=== PATIENT | male | born 1940 ===

== ENCOUNTER 2016-11-18 19:16 | Emergency (ER) | payer MEDICARE, MEDICAID ==
[2016-11-18 19:17] VITALS: BMI 27.3
[2016-11-18 19:56] VITALS: O2SAT 99
--- NOTE | 2016-11-18 20:24 | C.PDOC ---
History Of Present Illness 75 year old male who presents to the ER with a complaint of not being able to pass urine. Folly catheter placed with 750cc of urine output. Patient has a Hx of prostatic enlargement; denies abdominal pain, hematuria, nausea, vomiting, or diarrhea. Chief Complaint (Nursing): Male Genitourinary History Per: Patient History/Exam Limitations: no limitations Onset/Duration Of Symptoms: Hrs Current Symptoms Are (Timing): Still Present Quality Of Discomfort: Unable To Describe Associated Symptoms: denies: Fever, Chills, Nausea, Vomiting, Diarrhea Alleviating Factors: None Recent travel outside of the [place]: No Past Medical History Reviewed: Historical Data, Nursing Documentation, Vital Signs Vital Signs: Last Vital Signs Temp 97.5 F L 11/18/16 19:41 Pulse 110 H 11/18/16 19:41 Resp 22 11/18/16 19:41 BP 151/85 H 11/18/16 19:41 Pulse Ox 99 11/18/16 22:25 - Medical History PMH: Anxiety, Atrial Fibrillation, CAD, Depression, HTN, Hypercholesterolemia Surgical History: Appendectomy, Coronary Stent (x2) - [facility] Procedures CLOSURE SKIN & SUBCUTANEOUS NEC (10/13/14) Family History: States: Unknown Family Hx - Social History Hx Alcohol Use: No Hx Substance Use: No Review Of Systems Constitutional: Negative for: Fever, Chills Gastrointestinal: Negative for: Nausea, Vomiting, Abdominal Pain Genitourinary: Positive for: Other (Cannot pass urine). Negative for: Dysuria, Hematuria Neurological: Negative for: Weakness, Numbness Physical Exam - Physical Exam Appears: Non-toxic, No Acute Distress Skin: Normal Color, Warm, Dry Head: Atraumatic, Normacephalic Oral Mucosa: Moist Chest: Symmetrical, No Tenderness Cardiovascular: Rhythm Regular, No Murmur Respiratory: Normal Breath Sounds, No Rales, No Rhonchi, No Wheezing Gastrointestinal/Abdominal: Soft, No Tenderness, Distention (Initally before folly catheter), No Guarding, No Rebound Neurological/Psych: Oriented x3, Normal Speech, Normal Cognition ED Course And Treatment O2 Sat by Pulse Oximetry: 99 (Room air) Pulse Ox Interpretation: Normal Progress Note: Urinalysis ordered. Disposition Doctor Will See Patient In The: Hospital Counseled Patient/Family Regarding: Diagnosis - Disposition Referrals: [facility] at [facility] [Outside] Ana Marquez MD [Staff Provider] - Disposition: HOME/ ROUTINE Disposition Time: 22:25 Condition: STABLE Instructions: Veliz Catheter Placement and Care (ED), Urinary Leg Bag (GEN), Urinary Retention in Men (ED) Forms: [facility] (Canadian) - POA Present On Arrival: None - Clinical Impression Clinical Impression: Urinary retention - Scribe Statement The provider has reviewed the documentation as recorded by the Scribe Kuldip Griffin All medical record entries made by the Scribe were at my direction and personally dictated by me. I have reviewed the chart and agree that the record accurately reflects my personal performance of the history, physical exam, medical decision making, and the department course for this patient. I have also personally directed, reviewed, and agree with the discharge instructions and disposition.
[2016-11-18 21:18] LABS: RBC URINE 9 /hpf (0-3); URINE BACTERIA OCC (<OCC); URINE BILIRUBIN NEGATIVE (NEGATIVE); URINE BLOOD 2+ (NEGATIVE); URINE COLOR Straw (YELLOW); URINE GLUCOSE (UA) NORMAL (Normal); URINE KETONE NEGATIVE (NEGATIVE); URINE LEUKOCYTE ESTERASE NEG Leu/uL (Negative); URINE PROTEIN NEGATIVE (NEGATIVE); URINE UROBILINOGEN NORMAL mg/dL (0.2-1.0); WBC URINE 2 /hpf (0-5)
[2016-11-18 22:49] VITALS: BP 124/75; PULSE 81; RESP 18; TEMP 98.3
== END 2016-11-18 23:17 | disposition home or self-care (01) ==
LOC: C.ER 19:16
DX: R33.9 Retention of urine, unspecified (principal)

== ENCOUNTER 2016-12-05 10:50 | Emergency (ER) | payer MEDICARE, MEDICAID ==
[2016-12-05 10:50] VITALS: BMI 27.3
[2016-12-05 11:08] VITALS: RESP 18; O2SAT 99
--- NOTE | 2016-12-05 11:47 | C.PDOC ---
History Of Present Illness 76 year old presents to the ED with complaints of hematuria and suprapubic pain for two days. Patient notes pain is minimal and was seen by urologist Dr. Marquez 6 days ago. Patient had a rodriguez placed due to inability to urinate. He denies fever, nausea, vomiting, or other complaints at this time. Time Seen by Provider: 12/05/16 11:28 Chief Complaint (Nursing): Male Genitourinary History Per: Patient History/Exam Limitations: no limitations Onset/Duration Of Symptoms: Days (2 days ) Current Symptoms Are (Timing): Still Present Quality Of Discomfort: "Pain" Recent travel outside of the [place]: No Additional History Per: Family, Prior Records Past Medical History Reviewed: Historical Data, Nursing Documentation, Vital Signs Vital Signs: Last Vital Signs Temp 97.5 F L 12/05/16 13:25 Pulse 70 12/05/16 13:25 Resp 18 12/05/16 13:25 BP 104/66 12/05/16 13:25 Pulse Ox 99 12/05/16 17:35 - Medical History PMH: Anxiety, Atrial Fibrillation, CAD, Depression, HTN, Hypercholesterolemia Surgical History: Appendectomy, Coronary Stent (x2) - [facility] Procedures CLOSURE SKIN & SUBCUTANEOUS NEC (10/13/14) Family History: States: Other Other Family History: Non-contributory. - Social History Hx Alcohol Use: No Hx Substance Use: No Review Of Systems Constitutional: Negative for: Fever, Chills Cardiovascular: Negative for: Chest Pain Respiratory: Negative for: Shortness of Breath Gastrointestinal: Positive for: Abdominal Pain. Negative for: Nausea, Vomiting , Diarrhea Genitourinary: Positive for: Hematuria. Negative for: Incontinence Neurological: Negative for: Weakness, Numbness Physical Exam - Physical Exam Appears: Non-toxic, No Acute Distress Skin: Warm, Dry Head: Atraumatic Eye(s): bilateral: Normal Inspection Oral Mucosa: Moist Neck: Supple Chest: Symmetrical, No Deformity Cardiovascular: Rhythm Regular Respiratory: Normal Breath Sounds, No Rales, No Rhonchi, No Wheezing Gastrointestinal/Abdominal: Soft, No Tenderness, No Distention, No Guarding, No Rebound Male Genital: Other (Rodriguez catheter in place draining clear urine ) Extremity: Normal ROM, No Tenderness Neurological/Psych: Oriented x3, Normal Speech, Normal Cognition ED Course And Treatment - Laboratory Results Result Diagrams: 12/05/16 12:00 12/05/16 12:00 O2 Sat by Pulse Oximetry: 99 (room air ) Progress Note: UA and Labs were ordered. Medical Decision Making Medical Decision Making: zully Marquez rec adrianaquin and f/u in office Disposition - Disposition Referrals: Ana Marquez MD [Staff Provider] - Disposition: HOME/ ROUTINE Disposition Time: 13:31 Condition: STABLE Additional Instructions: Please call Dr Marquez's office tomorrow to arrange follow up. Return to the ER for any worsening symptoms or for any other concerns. Prescriptions: levoFLOXacin [Levaquin] 500 mg PO DAILY #7 tab Instructions: Urinary Tract Infection in Men (ED) Forms: Gen Discharge Inst Tongan, [facility] (Colombian) Print Language: YORUBA - Clinical Impression Clinical Impression: UTI (urinary tract infection) - Scribe Statement The provider has reviewed the documentation as recorded by the Scribe Nicky Li All medical record entries made by the Scribe were at my direction and personally dictated by me. I have reviewed the chart and agree that the record accurately reflects my personal performance of the history, physical exam, medical decision making, and the department course for this patient. I have also personally directed, reviewed, and agree with the discharge instructions and disposition.
[2016-12-05 12:05] LABS: BASO # 0.1 K/uL (0.0-0.2); BASO % 1.2 % (0.0-2.0); EOS # 0.1 K/uL (0.0-0.7); EOS % 1.8 % (0.0-4.0); HEMATOCRIT 40.7 % (35.0-51.0); LYMPH # 1.5 K/uL (1.0-4.3); LYMPH % 30.6 % (20.0-40.0); MEAN CELL VOLUME 78.8 fL (80.0-94.0); MEAN CORPUSCULAR HEMOGLOBIN 25.6 pg (27.0-31.0); MEAN CORPUSCULAR HGB CONC 32.5 g/dL (33.0-37.0); MONO # 0.7 K/uL (0.0-0.8); MONO % 13.6 % (0.0-10.0); NRBC % 0.1 % (0.0-2.0); RED CELL DISTRIBUTION WIDTH 14.2 % (11.5-14.5)
[2016-12-05 12:11] LABS: RBC URINE 23 /hpf (0-3); URINE BACTERIA MOD (<OCC); URINE BILIRUBIN NEGATIVE (NEGATIVE); URINE BLOOD 3+ (NEGATIVE); URINE COLOR Yellow (YELLOW); URINE GLUCOSE (UA) NORMAL (Normal); URINE KETONE NEGATIVE (NEGATIVE); URINE LEUKOCYTE ESTERASE 3+ Leu/uL (Negative); URINE PROTEIN NEGATIVE (NEGATIVE); URINE UROBILINOGEN NORMAL mg/dL (0.2-1.0); WBC URINE 30 /hpf (0-5)
[2016-12-05 12:13] LABS: CHLORIDE 102 mmol/L (98-107); POTASSIUM 4.5 mmol/L (3.6-5.2); SODIUM 145 mmol/L (132-148)
[2016-12-05 12:15] LABS: GFR AFRICAN-AMERICAN > 60
[2016-12-05 12:16] LABS: ALB/GLOB RATIO 1.1 (1.0-2.1); ALKALINE PHOSPHATASE 61 U/L (38-126); ALT/SGPT 22 U/L (21-72); AST/SGOT 17 U/L (17-59); BILIRUBIN,TOTAL 0.8 mg/dL (0.2-1.3); BLOOD UREA NITROGEN 15 mg/dL (9-20); CARBON DIOXIDE 31 mmol/L (22-30); GLUCOSE,RANDOM 102 mg/dL (75-110); TOTAL PROTEIN 8.4 g/dL (6.3-8.3)
[2016-12-05 13:26] VITALS: BP 104/66; PULSE 70; TEMP 97.5
== END 2016-12-05 13:32 | disposition home or self-care (01) ==
LOC: C.ER 10:50
DX: N39.0 Urinary tract infection, site not specified (principal)

== ENCOUNTER 2016-12-09 11:26 | Inpatient (IN) | payer MEDICARE, MEDICAID ==
[2016-12-08 07:17] VITALS: BMI 25.8
[2016-12-09] MEDS ORDERED: Lactated Ringer's 1,000 ML IV ONE (13:18)
[2016-12-09] MEDS ORDERED: Lidocaine Hydrochloride 5 ML INJ ONE (13:20)
[2016-12-09] MEDS ORDERED: Propofol 10 mg/ml Inj (20 ML) ONE (13:20)
[2016-12-09] MEDS ORDERED: Ciprofloxacin 400mg/200ml D5W 400 MG/200 ML BAG IVPB ONE (13:21)
[2016-12-09] MEDS ORDERED: Lidocaine 2% Jelly (Uro-Jet) ONE (13:21)
[2016-12-09] MEDS ORDERED: ePHEDrine 50 mg/ml Inj ONE (13:35)
[2016-12-09] MEDS ORDERED: Neostigmine Methylsulfate 3mg/3ml Syringe IV ONE (14:41)
--- NOTE | 2016-12-09 15:05 | PCM.SURG1 ---
Surgeon's Initial Post Op Note - Surgeon's Notes Surgeon: akbar Buckle And Button Maker: none Type of Anesthesia: General IV Anesthesia Administered By: Pre-Operative Diagnosis: bph.acute urinary retention. Operative Findings: bph Post-Operative Diagnosis: bph.moderate trabeculation.no tumors or stones.enlarged prostate gland. Operation Performed: tur prostate gland. Specimen/Specimens Removed: prostate tissue. Estimated Blood Loss: EBL {In ML}: 15 Blood Products Given: N/A Drains Used: No Drains Post-Op Condition: Good Date of Surgery/Procedure: 12/09/16 Time of Surgery/Procedure: 15:07
[2016-12-09] MEDS ORDERED: HYDROmorphone 0.5 mg/0.5 ml ISec ONE (15:14)
[2016-12-09] MEDS: HYDROmorphone 0.5 mg/0.5 ml ISec IVP PRN ×2 (15:15→15:45)
[2016-12-09] MEDS: Dextrose 5%/0.45% NS 1,000 ML IV SCH (16:50)
[2016-12-09] MEDS ORDERED: Dextrose 5%/0.45% NS 1,000 ML IV ONE (17:10)
[2016-12-09] MEDS: Oxycodone/Acetaminophen 5/325 mg Tab PO PRN (18:52)
[2016-12-10] MEDS: Oxycodone/Acetaminophen 5/325 mg Tab PO PRN ×2 (00:13→15:00)
[2016-12-10] MEDS: Ciprofloxacin 400mg/200ml D5W 400 MG/200 ML BAG IVPB SCH ×3 (05:18→14:43)
[2016-12-10 07:04] LABS: HEMATOCRIT 32.8 % (35.0-51.0); MEAN CELL VOLUME 78.9 fL (80.0-94.0); MEAN CORPUSCULAR HEMOGLOBIN 26.3 pg (27.0-31.0); MEAN CORPUSCULAR HGB CONC 33.3 g/dL (33.0-37.0); MEAN PLATELET VOLUME 10.1 fL (7.2-11.7); RED CELL DISTRIBUTION WIDTH 14.2 % (11.5-14.5); WHITE BLOOD COUNT 9.9 K/uL (4.8-10.8)
[2016-12-10 07:38] LABS: BLOOD UREA NITROGEN 16 mg/dL (9-20); CALCIUM 8.9 mg/dl (8.6-10.4); CARBON DIOXIDE 26 mmol/L (22-30); CHLORIDE 98 mmol/L (98-107); GFR AFRICAN-AMERICAN > 60; GLUCOSE,RANDOM 196 mg/dL (75-110); POTASSIUM 4.4 mmol/L (3.6-5.2); SODIUM 138 mmol/L (132-148)
[2016-12-10] MEDS: Dextrose 5%/0.45% NS 1,000 ML IV SCH (12:00)
[2016-12-10] MEDS ORDERED: Pneumococcal 23-Valent Vaccine IM ONE (14:00)
[2016-12-11] MEDS: Ciprofloxacin 400mg/200ml D5W 400 MG/200 ML BAG IVPB SCH ×2 (01:02→13:25)
[2016-12-11] MEDS: Oxycodone/Acetaminophen 5/325 mg Tab PO PRN ×3 (07:27→21:17)
[2016-12-11 16:49] LABS: HEMATOCRIT 27.7 % (35.0-51.0); MEAN CELL VOLUME 78.7 fL (80.0-94.0); MEAN CORPUSCULAR HEMOGLOBIN 26.3 pg (27.0-31.0); MEAN CORPUSCULAR HGB CONC 33.4 g/dL (33.0-37.0); MEAN PLATELET VOLUME 10.1 fL (7.2-11.7); RED CELL DISTRIBUTION WIDTH 14.5 % (11.5-14.5); WHITE BLOOD COUNT 8.5 K/uL (4.8-10.8)
[2016-12-11] MEDS: Dextrose 5%/0.45% NS 1,000 ML IV SCH (18:34)
[2016-12-12] MEDS: Ciprofloxacin 400mg/200ml D5W 400 MG/200 ML BAG IVPB SCH ×2 (01:04→14:38)
[2016-12-12] MEDS: Oxycodone/Acetaminophen 5/325 mg Tab PO PRN ×2 (04:12→14:37)
[2016-12-12] MEDS: Docusate-Senna 50 mg-8.6 mg Tab PO SCH (14:37)
[2016-12-12] MEDS: Dextrose 5%/0.45% NS 1,000 ML IV SCH (14:45)
[2016-12-12 16:08] VITALS: RESP 20
[2016-12-13] MEDS: Ciprofloxacin 400mg/200ml D5W 400 MG/200 ML BAG IVPB SCH ×2 (02:42→16:02)
[2016-12-13] MEDS: Docusate-Senna 50 mg-8.6 mg Tab PO SCH (10:29)
[2016-12-13 16:07] VITALS: BP 129/85; PULSE 91; TEMP 97.6; O2SAT 100
--- NOTE | 2016-12-24 03:56 | OP ---
PROCEDURE DATE: 12/09/2016 PREOPERATIVE DIAGNOSES: Acute urinary retention, benign prostatic hypertrophy. POSTOPERATIVE DIAGNOSES: Acute urinary retention, benign prostatic hypertrophy. PROCEDURE: Transurethral resection of the prostate gland. SURGEON: Asad Capone MD GROSS FINDING: Good bladder capacity. No tumors or stones were observed during emptying or filling of the bladder. Moderate trabeculated bladder. Urethral orifices normally placed and in configuration. Enlarged lateral lobes of the prostate gland meeting at the midline, a small median lobe, a slightly elongated prostatic urethra. Membranous and pendulous urethra normal. TECHNIQUE: This patient was placed in lithotomy position. The external genitalia were prepped and draped in the usual sterile fashion. The urethra was dilated to #28 Azael sounds and #26 resectoscope was introduced in the bladder. The resection was started at the bladder neck and on the right lateral lobe, was carried down distally close to the verumontanum without injuring this structure. The left lateral lobe was resected in the same manner. Bleeders were thoroughly fulgurated.. At the end of the procedure, all the prostate tissue was removed for pathology evaluation. Then, a #22 three-way 30 mL Veliz was left indwelling to be connected to a continuous bladder irrigation with normal saline. The patient withstood the procedure well and returned to recovery room in satisfactory condition. Asad Capone MD
--- NOTE | 2016-12-24 07:47 | DS ---
HISTORY OF PRESENT ILLNESS: This patient was admitted for transurethral resection of the prostate gland because of enlargement of the prostate gland and acute urinary retention. The CBC was within normal limit. There is slight decrease in the platelet count. PT and PTT within normal limits. PSA 4.8 ng/mL. Echocardiogram, LVEF 50%. Mild aortic regurgitation and moderate mitral regurgitation. The chest x-ray showed COPD with no acute infiltrate. This patient underwent transurethral resection of the prostate gland on 12/09/2016, and did well with small amount of bleeding postop. The pathology report was benign prostatic hyperplasia. The patient is to be discharged with a Veliz catheter, leg bag, antibiotic, and to go to for office followup in 5 days. Asad Capone MD
== END 2016-12-13 15:35 | disposition home or self-care (01) | DRG 714 ==
LOC: C.9S 11:26 → C.6T 17:42
PROVIDERS: ADMIT Urology; ATTEND Urology
PROC: 0VT08ZZ Resection of Prostate, Via Natural or Artificial Opening Endoscopic (ICD-10-PCS; principal; 2016-12-09 13:00)
DX: N40.1 Benign prostatic hyperplasia with lower urinary tract symptoms (principal); J44.9 Chronic obstructive pulmonary disease, unspecified; I34.0 Nonrheumatic mitral (valve) insufficiency; R33.8 Other retention of urine; I35.1 Nonrheumatic aortic (valve) insufficiency

== ENCOUNTER 2017-01-05 03:21 | Inpatient (IN) | payer MEDICARE, MEDICAID ==
[2017-01-05 03:24] VITALS: BMI 25.8
--- NOTE | 2017-01-05 04:06 | C.PDOC ---
History Of Present Illness patient presents in acute urinary retention and hematuria. Sharp stabbing pain. Was able to void about 15 cc of bloody urine and some clots. Time Seen by Provider: 01/05/17 04:05 Chief Complaint (Nursing): Abdominal Pain History Per: Patient History/Exam Limitations: no limitations Onset/Duration Of Symptoms: Hrs Current Symptoms Are (Timing): Worse Context: Other Severity: Moderate Pain Scale Rating Of: 5 Location Of Pain/Discomfort: Suprapubic Radiation Of Pain To:: None Quality Of Discomfort: Sharp, Cramping, Stabbing Associated Symptoms: Urinary Symptoms (hematuria). denies: Fever, Chills, Nausea Exacerbating Factors: None Alleviating Factors: None Last Bowel Movement: Yesterday Recent travel outside of the [place]: No Additional History Per: Family Past Medical History Reviewed: Historical Data, Nursing Documentation, Vital Signs Vital Signs: Last Vital Signs Temp 97.6 F 01/05/17 03:35 Pulse 97 H 01/05/17 03:35 Resp 18 01/05/17 03:35 BP 113/60 01/05/17 03:35 Pulse Ox 97 01/05/17 04:30 - Medical History PMH: Anxiety, Atrial Fibrillation, CAD, Cardia Arrhythmia (a fib), Depression, Gall Bladder Disease, HTN, Hypercholesterolemia Denies: Chronic Kidney Disease Surgical History: Appendectomy, Cholecystectomy, Coronary Stent (x2), Endoscopy , Tonsillectomy - [facility] Procedures CLOSURE SKIN & SUBCUTANEOUS NEC (10/13/14) RESECTION OF PROSTATE, ENDO (12/09/16) Family History: States: Unknown Family Hx - Social History Hx Alcohol Use: No Hx Substance Use: No - Immunization History Hx Tetanus Toxoid Vaccination: No Hx Influenza Vaccination: No Hx Pneumococcal Vaccination: No Review Of Systems Constitutional: Negative for: Fever, Chills Eyes: Negative for: Redness Cardiovascular: Negative for: Chest Pain Respiratory: Negative for: Shortness of Breath Gastrointestinal: Positive for: Abdominal Pain. Negative for: Nausea, Vomiting Genitourinary: Positive for: Hematuria Musculoskeletal: Negative for: Back Pain Skin: Negative for: Rash Neurological: Negative for: Weakness Psych: Negative for: Anxiety Physical Exam - Physical Exam Appears: In Acute Distress Skin: Warm, Dry Head: Normacephalic Eye(s): bilateral: Normal Inspection Chest: Symmetrical Cardiovascular: Rhythm Regular Respiratory: No Rales, No Rhonchi, No Wheezing Gastrointestinal/Abdominal: Soft, Tenderness (suprapubic), Distention Back: No CVA Tenderness Male Genital: No Testicular Tenderness, Circumcised Extremity: Normal ROM Extremity: Bilateral: Atraumatic Pulses: Left Dorsalis Pedis: Normal, Right Dorsalis Pedis: Normal Neurological/Psych: Oriented x3, Normal Speech, Normal Cognition Gait: Steady ED Course And Treatment - Laboratory Results Result Diagrams: 01/05/17 04:28 01/05/17 04:28 O2 Sat by Pulse Oximetry: 97 Pulse Ox Interpretation: Normal Progress Note: i've placed a [address]z without any difficulty. Large amount of bloody urine and clots draining. Pt with instant relief. Disposition Discussed With Dr.: Shiela Jackson Comment: accepted the pt on his service and took over thecare at 5:30 AM Doctor Will See Patient In The: Hospital Counseled Patient/Family Regarding: Studies Performed, Diagnosis - Disposition Disposition: HOSPITALIZED Disposition Time: 04:05 Condition: FAIR Forms: [facility] (Cymro) - POA Present On Arrival: Poor Glycemic Control - Clinical Impression Clinical Impression: Abdominal pain, Urinary retention, Hematuria Decision To Admit - Pt Status Changed To: Hospital Disposition Of: Inpatient - Admit Certification Admit to Inpatient:: After my assessment, the patient will require hospitalization for at least two midnights. This is because of the severity of symptoms shown, intensity of services needed, and/or the medical risk in this patient being treated as an outpatient. - InPatient: Physician Admission Certification:: After my assessment, the patient will require hospitalization for at least two midnights. This is because of the severity of symptoms shown, intensity of services needed, and/or the medical risk in this patient being treated as an outpatient. - . Bed Request Type: Regular Admitting Physician: Shiela Jackson Patient Diagnosis: Abdominal pain, Urinary retention, Hematuria
[2017-01-05 04:33] LABS: BASO # 0.1 K/uL (0.0-0.2); BASO % 1.3 % (0.0-2.0); EOS # 0.3 K/uL (0.0-0.7); EOS % 5.7 % (0.0-4.0); HEMATOCRIT 30.5 % (35.0-51.0); LYMPH # 0.8 K/uL (1.0-4.3); MEAN CELL VOLUME 80.7 fL (80.0-94.0); MEAN CORPUSCULAR HEMOGLOBIN 25.9 pg (27.0-31.0); MEAN CORPUSCULAR HGB CONC 32.1 g/dL (33.0-37.0); MONO # 0.7 K/uL (0.0-0.8); MONO % 14.8 % (0.0-10.0); NRBC % 0.1 % (0.0-2.0); RED CELL DISTRIBUTION WIDTH 15.4 % (11.5-14.5); WHITE BLOOD COUNT 4.4 K/uL (4.8-10.8)
[2017-01-05 04:39] LABS: INR 1.1
[2017-01-05 04:45] LABS: CHLORIDE 104 mmol/L (98-107); POTASSIUM 4.2 mmol/L (3.6-5.2); SODIUM 138 mmol/L (132-148)
[2017-01-05 04:48] LABS: CARBON DIOXIDE 24 mmol/L (22-30); GFR AFRICAN-AMERICAN > 60
[2017-01-05 04:49] LABS: BLOOD UREA NITROGEN 16 mg/dL (9-20); CALCIUM 8.8 mg/dl (8.6-10.4); GLUCOSE,RANDOM 122 mg/dL (75-110)
[2017-01-05] MEDS ORDERED: Sodium Chloride 0.9% 1,000 ML IV ONE (06:25)
[2017-01-05] MEDS: Sodium Chloride 0.9% 1,000 ML IV SCH (09:00)
--- NOTE | 2017-01-05 09:49 | CP.PCM.HP ---
Past Patient History - Past Medical History & Family History Past Medical History?: Yes - Past Social History Smoking Status: Former Smoker - CARDIAC Hx Atrial Fibrillation: Yes Hx Cardia Arrhythmia: Yes (a fib) Hx Hypercholesterolemia: Yes Hx Hypertension: Yes - PULMONARY Hx Respiratory Disorders: No - NEUROLOGICAL Hx Neurological Disorder: No Other/Comment: NEUROPATHY - HEENT Hx HEENT Problems: Yes Hx Cataracts: Yes (right eye) Hx Glaucoma: Yes - RENAL Hx Chronic Kidney Disease: No - ENDOCRINE/METABOLIC Hx Endocrine Disorders: No - HEMATOLOGICAL/ONCOLOGICAL Hx Blood Disorders: No - INTEGUMENTARY Hx Dermatological Problems: No - MUSCULOSKELETAL/RHEUMATOLOGICAL Hx Musculoskeletal Disorders: Yes Hx Falls: No Hx Unsteady Gait: Yes (USES CANE) - GASTROINTESTINAL Hx Gall Bladder Disease: Yes - GENITOURINARY/GYNECOLOGICAL Hx Genitourinary Disorders: Yes Hx Prostate Problems: Yes (rodriguez to sgd) - PSYCHIATRIC Hx Anxiety: Yes Hx Depression: Yes Hx Substance Use: No - SURGICAL HISTORY Hx Appendectomy: Yes Hx Cholecystectomy: Yes Hx Coronary Stent: Yes (x2) Hx Tonsillectomy: Yes - ANESTHESIA Hx Anesthesia: Yes Hx Anesthesia Reactions: No Hx Malignant Hyperthermia: No Meds Allergies/Adverse Reactions: Allergies Allergy/AdvReac Type Severity Reaction Status Date / Time aspirin Allergy RASH Verified 01/05/17 03:42 Penicillins Allergy RASH Verified 01/05/17 03:42 Physical Exam - Constitutional Appears: Well - Head Exam Head Exam: ATRAUMATIC, NORMAL INSPECTION, NORMOCEPHALIC - Eye Exam Eye Exam: EOMI, Normal appearance, PERRL Pupil Exam: NORMAL ACCOMODATION, PERRL - ENT Exam ENT Exam: Mucous Membranes Moist, Normal Exam - Neck Exam Neck exam: Positive for: Normal Inspection - Respiratory Exam Respiratory Exam: Decreased Breath Sounds - Cardiovascular Exam Cardiovascular Exam: REGULAR RHYTHM, +S1, +S2 - GI/Abdominal Exam GI & Abdominal Exam: Diminished Bowel Sounds, Soft - Rectal Exam Rectal Exam: Deferred Results - Vital Signs Recent Vital Signs: Last Vital Signs Temp 97.4 F L 01/05/17 07:40 Pulse 80 01/05/17 07:40 Resp 20 01/05/17 07:40 BP 103/63 01/05/17 07:40 Pulse Ox 97 01/05/17 07:40 - Labs Result Diagrams: 01/05/17 04:28 01/05/17 04:28 Labs: Laboratory Results - last 24 hr 01/05/17 01/05/17 01/05/17 04:28 04:28 04:28 WBC 4.4 L RBC 3.78 L Hgb 9.8 L Hct 30.5 L MCV 80.7 D MCH 25.9 L MCHC 32.1 L RDW 15.4 H Plt Count 139 MPV 9.0 Neut % (Auto) 60.2 Lymph % (Auto) 18.0 L [place] % (Auto) 14.8 H Eos % (Auto) 5.7 H Baso % (Auto) 1.3 Neut # 2.6 Lymph # 0.8 L [place] # 0.7 Eos # 0.3 Baso # 0.1 PT 12.8 H INR 1.1 APTT 35 H Sodium 138 Potassium 4.2 Chloride 104 Carbon Dioxide 24 Anion Gap 14 BUN 16 Creatinine 0.9 Est GFR ( Amer) > 60 Est GFR (Non-Af Amer) > 60 Random Glucose 122 H Calcium 8.8
[2017-01-05] MEDS: Ciprofloxacin 400mg/200ml D5W 400 MG/200 ML BAG IVPB SCH ×2 (11:00→21:36)
[2017-01-06] MEDS: Ciprofloxacin 400mg/200ml D5W 400 MG/200 ML BAG IVPB SCH ×2 (09:49→21:22)
[2017-01-06] MEDS: Sodium Chloride 0.9% 1,000 ML IV SCH (09:51)
[2017-01-06] MEDS ORDERED: Latanoprost 2.5 ml Opht Soln OU SCH (10:00)
[2017-01-06] MEDS ORDERED: CYCLOSPORINE BOTHEYES SCH (10:00)
[2017-01-06 14:07] LABS: BASO # 0.1 K/uL (0.0-0.2); BASO % 1.1 % (0.0-2.0); EOS # 0.2 K/uL (0.0-0.7); EOS % 3.5 % (0.0-4.0); HEMATOCRIT 28.9 % (35.0-51.0); LYMPH # 1.4 K/uL (1.0-4.3); LYMPH % 29.8 % (20.0-40.0); MEAN CORPUSCULAR HGB CONC 33.3 g/dL (33.0-37.0); MEAN PLATELET VOLUME 9.8 fL (7.2-11.7); MONO # 0.8 K/uL (0.0-0.8); MONO % 16.4 % (0.0-10.0); RED CELL DISTRIBUTION WIDTH 15.6 % (11.5-14.5); WHITE BLOOD COUNT 4.6 K/uL (4.8-10.8)
[2017-01-06 14:53] LABS: CHLORIDE 103 mmol/L (98-107); SODIUM 138 mmol/L (132-148)
[2017-01-06 14:54] LABS: POTASSIUM 3.9 mmol/L (3.6-5.2)
[2017-01-06 14:56] LABS: ALKALINE PHOSPHATASE 64 U/L (38-126); ALT/SGPT 14 U/L (21-72); AST/SGOT 15 U/L (17-59); BILIRUBIN,TOTAL 0.4 mg/dL (0.2-1.3); BLOOD UREA NITROGEN 9 mg/dL (9-20); CARBON DIOXIDE 26 mmol/L (22-30); GFR AFRICAN-AMERICAN > 60; GLUCOSE,RANDOM 93 mg/dL (75-110)
[2017-01-06 14:57] LABS: CALCIUM 8.7 mg/dl (8.6-10.4)
[2017-01-06 18:51] LABS: RBC URINE 289 /hpf (0-3); URINE BILIRUBIN NEGATIVE (NEGATIVE); URINE BLOOD 2+ (NEGATIVE); URINE COLOR Red (YELLOW); URINE GLUCOSE (UA) NORMAL (Normal); URINE KETONE NEGATIVE (NEGATIVE); URINE LEUKOCYTE ESTERASE 2+ Leu/uL (Negative); URINE PROTEIN 2+ mg/dL (NEGATIVE); URINE UROBILINOGEN NORMAL mg/dL (0.2-1.0); WBC URINE 39 /hpf (0-5)
--- NOTE | 2017-01-06 19:00 | CP.PCM.PN ---
Subjective - Date & Time of Evaluation Date of Evaluation: 01/06/17 Time of Evaluation: 12:20 - Subjective Subjective: clinically same Objective - Vital Signs/Intake and Output Vital Signs (last 24 hours): Temp Pulse Resp BP Pulse Ox 98.1 F 106 H 20 111/69 96 01/06/17 15:00 01/06/17 15:00 01/06/17 15:00 01/06/17 15:00 01/06/17 15:00 Intake and Output: 01/06/17 01/07/17 18:59 06:59 Intake Total 67712 Output Total 66428 Balance 350 - Medications Medications: Current Medications Acetaminophen (Tylenol 325mg Tab) 650 mg PO Q8H PRN PRN Reason: pain Last Admin: 01/06/17 18:06 Dose: 650 mg Alprazolam (Xanax) 0.25 mg PO DAILY [facility] Stop: 01/13/17 10:01 Last Admin: 01/06/17 09:49 Dose: 0.25 mg Ciprofloxacin (Cipro 400mg/200ml Dsw) 400 mg in 200 mls @ 133 mls/hr IVPB Q12H [facility] Last Admin: 01/06/17 09:49 Dose: 133 mls/hr Sodium Chloride (Sodium Chloride 0.9%) 1,000 mls @ 50 mls/hr IV .Q20H [facility] Last Admin: 01/06/17 09:51 Dose: 50 mls/hr Latanoprost (Xalatan Opht) 0 ml OU DAILY [facility] Last Admin: 01/06/17 09:50 Dose: Not Given Pneumococcal Polyvalent Vaccine (Pneumovax 23 Vaccine) 0.5 ml IM .ONCE ONE Stop: 01/07/17 10:01 Tamsulosin HCl (Flomax) 0.4 mg PO BID [facility] Last Admin: 01/06/17 18:05 Dose: 0.4 mg - Labs Labs: 01/06/17 14:01 01/06/17 14:01 PT 12.8 SECONDS (9.7-12.2) H 01/05/17 04:28 INR 1.1 01/05/17 04:28 APTT 35 SECONDS (21-34) H 01/05/17 04:28 - Constitutional Appears: Well - Head Exam Head Exam: ATRAUMATIC, NORMAL INSPECTION, NORMOCEPHALIC - Eye Exam Eye Exam: EOMI, Normal appearance, PERRL Pupil Exam: NORMAL ACCOMODATION, PERRL - ENT Exam ENT Exam: Mucous Membranes Moist, Normal Exam - Neck Exam Neck Exam: Full ROM, Normal Inspection. absent: Lymphadenopathy - Respiratory Exam Respiratory Exam: Decreased Breath Sounds - Cardiovascular Exam Cardiovascular Exam: REGULAR RHYTHM, +S1, +S2 - GI/Abdominal Exam GI & Abdominal Exam: Soft, Diminished Bowel Sounds - Rectal Exam Rectal Exam: Deferred
[2017-01-07] MEDS: Sodium Chloride 0.9% 1,000 ML IV SCH ×2 (09:00→22:44)
[2017-01-07] MEDS: Ciprofloxacin 400mg/200ml D5W 400 MG/200 ML BAG IVPB SCH ×2 (10:00→23:01)
[2017-01-07] MEDS ORDERED: Pneumococcal 23-Valent Vaccine IM ONE (10:00)
[2017-01-07] MEDS ORDERED: Influenza Vaccine 60 mcg/0.5 mL SYR (4YR UP) IM ONE (10:00)
--- NOTE | 2017-01-07 15:31 | CP.PCM.PN ---
Subjective - Date & Time of Evaluation Date of Evaluation: 01/07/17 Time of Evaluation: 12:00 - Subjective Subjective: clinically same Objective - Vital Signs/Intake and Output Vital Signs (last 24 hours): Temp Pulse Resp BP Pulse Ox 97.9 F 84 20 118/74 97 01/07/17 07:00 01/07/17 09:57 01/07/17 07:00 01/07/17 09:57 01/07/17 07:00 Intake and Output: 01/07/17 01/07/17 06:59 18:59 Intake Total 5000 Output Total 7000 Balance -2000 - Medications Medications: Current Medications Acetaminophen (Tylenol 325mg Tab) 650 mg PO Q8H PRN PRN Reason: pain Last Admin: 01/07/17 09:58 Dose: 650 mg Alprazolam (Xanax) 0.25 mg PO DAILY [facility] Stop: 01/13/17 10:01 Last Admin: 01/07/17 09:58 Dose: 0.25 mg Ciprofloxacin (Cipro 400mg/200ml Dsw) 400 mg in 200 mls @ 133 mls/hr IVPB Q12H [facility] Last Admin: 01/07/17 10:00 Dose: 133 mls/hr Sodium Chloride (Sodium Chloride 0.9%) 1,000 mls @ 50 mls/hr IV .Q20H [facility] Last Admin: 01/07/17 09:00 Dose: 50 mls/hr Latanoprost (Xalatan Opht) 0 ml OU HS [facility] Tamsulosin HCl (Flomax) 0.4 mg PO BID [facility] Last Admin: 01/07/17 09:58 Dose: 0.4 mg - Labs Labs: 01/06/17 14:01 01/06/17 14:01 PT 12.8 SECONDS (9.7-12.2) H 01/05/17 04:28 INR 1.1 01/05/17 04:28 APTT 35 SECONDS (21-34) H 01/05/17 04:28 - Constitutional Appears: Well - Head Exam Head Exam: ATRAUMATIC, NORMAL INSPECTION, NORMOCEPHALIC - Eye Exam Eye Exam: EOMI, Normal appearance, PERRL Pupil Exam: NORMAL ACCOMODATION, PERRL - ENT Exam ENT Exam: Mucous Membranes Moist, Normal Exam - Neck Exam Neck Exam: Full ROM, Normal Inspection. absent: Lymphadenopathy - Respiratory Exam Respiratory Exam: Decreased Breath Sounds - Cardiovascular Exam Cardiovascular Exam: REGULAR RHYTHM, +S1, +S2 - GI/Abdominal Exam GI & Abdominal Exam: Soft, Diminished Bowel Sounds - Rectal Exam Rectal Exam: Deferred
[2017-01-07] MEDS: Latanoprost 2.5 ml Opht Soln OU SCH (23:01)
--- NOTE | 2017-01-08 11:24 | CP.PCM.PN ---
Subjective - Date & Time of Evaluation Date of Evaluation: 01/08/17 Time of Evaluation: 11:20 - Subjective Subjective: clinically same Objective - Vital Signs/Intake and Output Vital Signs (last 24 hours): Temp Pulse Resp BP Pulse Ox 98 F 86 20 134/63 98 01/08/17 07:10 01/08/17 07:10 01/08/17 07:10 01/08/17 07:10 01/08/17 07:10 Intake and Output: 01/08/17 01/08/17 06:59 18:59 Intake Total 82762 Output Total 37571 Balance 1950 - Medications Medications: Current Medications Acetaminophen (Tylenol 325mg Tab) 650 mg PO Q8H PRN PRN Reason: pain Last Admin: 01/07/17 21:31 Dose: 650 mg Alprazolam (Xanax) 0.25 mg PO DAILY [facility] Stop: 01/13/17 10:01 Last Admin: 01/07/17 09:58 Dose: 0.25 mg Ciprofloxacin (Cipro) 500 mg PO Q12 [facility] Latanoprost (Xalatan Opht) 0 ml OU HS [facility] Last Admin: 01/07/17 23:01 Dose: 2.5 ml Tamsulosin HCl (Flomax) 0.4 mg PO BID [facility] Last Admin: 01/07/17 18:45 Dose: 0.4 mg - Labs Labs: 01/06/17 14:01 01/06/17 14:01 PT 12.8 SECONDS (9.7-12.2) H 01/05/17 04:28 INR 1.1 01/05/17 04:28 APTT 35 SECONDS (21-34) H 01/05/17 04:28 - Constitutional Appears: Well - Head Exam Head Exam: ATRAUMATIC, NORMAL INSPECTION, NORMOCEPHALIC - Eye Exam Eye Exam: EOMI, Normal appearance, PERRL Pupil Exam: NORMAL ACCOMODATION, PERRL - ENT Exam ENT Exam: Mucous Membranes Moist, Normal Exam - Neck Exam Neck Exam: Full ROM, Normal Inspection. absent: Lymphadenopathy - Respiratory Exam Respiratory Exam: Decreased Breath Sounds - Cardiovascular Exam Cardiovascular Exam: REGULAR RHYTHM, +S1, +S2 - GI/Abdominal Exam GI & Abdominal Exam: Soft, Diminished Bowel Sounds - Rectal Exam Rectal Exam: Deferred
[2017-01-08] MEDS: Oxycodone/Acetaminophen 5/325 mg Tab PO PRN ×3 (12:57→23:03)
--- NOTE | 2017-01-08 16:43 | CP.PCM.CON ---
History of Present Illness - History of Present Illness History of Present Illness: patient presents in acute urinary retention and hematuria. Sharp stabbing pain. Was able to void about 15 cc of bloody urine and some clots. # way rodriguez placed by Urology IV antibiotics started c/o pain and discomfort No fever at this time - Medical History PMH: Anxiety, Atrial Fibrillation, CAD, Cardia Arrhythmia (a fib), Depression, Gall Bladder Disease, HTN, Hypercholesterolemia Denies: Chronic Kidney Disease Surgical History: Appendectomy, Cholecystectomy, Coronary Stent (x2), Endoscopy , Tonsillectomy - [facility] Procedures CLOSURE SKIN & SUBCUTANEOUS NEC (10/13/14) RESECTION OF PROSTATE, ENDO (12/09/16) Family History: States: Unknown Family Hx Review of Systems - Constitutional Constitutional: As Per HPI - EENT Eyes: absent: As Per HPI, Blind Spots, Blurred Vision, Change in Vision, Decreased Night Vision, Diplopia, Discharge, Dry Eye, Exophthalmos, Floaters, Irritation, Itchy Eyes, Loss of Peripheral Vision, Pain, Photophobia, Requires Corrective Lenses, Sees Flashes, Spots in Vision, Tunnel Vision, Other Visual Disturbances, Loss of Vision, Other Ears: absent: As Per HPI, Decreased Hearing, Ear Discharge, Ear Pain, Tinnitus, Abnormal Hearing, Disequilibrium, Dizziness, Other Nose/Mouth/Throat: absent: As Per HPI, Epistaxis, Nasal Congestion, Nasal Discharge, Nasal Obstruction, Nasal Trauma, Nose Pain, Post Nasal Drip, Sinus Pain, Sinus Pressure, Bleeding Gums, Change in Voice, Dental Pain, Dry Mouth, Dysphagia, Halitosis, Hoarsness, Lip Swelling, Mouth Lesions, Mouth Pain, Odynophagia, Sore Throat, Throat Swelling, Tongue Swelling, Facial Pain, Neck Pain, Neck Mass, Other - Cardiovascular Cardiovascular: absent: As Per HPI, Acrocyanosis, Chest Pain, Chest Pain at Rest , Chest Pain with Activity, Claudication, Diaphoresis, Dyspnea, Dyspnea on Exertion, Edema, Irregular Heart Rhythm, Pain Radiating to Arm/Neck/Jaw, Leg Edema, Leg Ulcers, Lightheadedness, Orthopnea, Palpitations, Paroxysmal Nocturnal Dyspnea, Pedal Edema, Radiating Pain, Rapid Heart Rate, Slow Heart Rate, Syncope, Other - Respiratory Respiratory: absent: As Per HPI, Cough, Dyspnea, Hemoptysis, Dyspnea on Exertion , Wheezing, Snoring, Stridor, Pain on Inspiration, Chest Congestion, Excessive Mucous Production, Change in Mucous Color, Pain with Coughing, Other - Gastrointestinal Gastrointestinal: absent: As Per HPI, Abdominal Pain, Belching, Bloating, Change in Bowel Habits, Change in Stool Character, Coffee Ground Emesis, Constipation, Cramping, Diarrhea, Dyspepsia, Dysphagia, Early Satiety, Excessive Flatus, Fecal Incontinence, Heartburn, Hematemesis, Hematochezia, Loose Stools, Melena, Nausea, Odynophagia, Temesmus, Vomiting, Other - Genitourinary Genitourinary: As Per HPI - Musculoskeletal Musculoskeletal: absent: As Per HPI, Abnormal Gait, Arthralgias, Atrophy, Back Pain, Deformity, Joint Swelling, Limited Range of Motion, Loss of Height, Muscle Cramps, Muscle Weakness, Myalgias, Neck Pain, Numbness, Radiating Pain into Limb, Stiffness, Tingling, Other - Integumentary Integumentary: absent: As Per HPI, Acne, Alopecia, Bleeding Lesions, Change in Hair, Change in Nails, Change in Pigmentation, Changing Lesions, Dry Skin, Erythema, Furuncle, Hirsutism, Lesions, New Lesions, Non-Healing Lesions, Photosensitivity, Pruritus, Rash, Skin Pain, Skin Ulcer, Sores, Striae, Swelling , Unusual Bruising, Wounds, Jaundice, Other - Neurological Neurological: absent: As Per HPI, Abnormal Gait, Abnormal Hearing, Abnormal Movements, Abnormal Speech, Behavioral Changes, Burning Sensations, Confusion, Convulsions, Disequilibrium, Dizziness, Numbness, Focal Weakness, Frequent Falls , Headaches, Lack of Coordination, Loss of Vision, Memory Loss, Paresthesias, Radicular Pain, Restless Legs, Sensory Deficit, Syncope, Tingling, Tremor, Vertigo, Weakness, Other Visual Disturbances, Other - Psychiatric Psychiatric: absent: As Per HPI, Abnormal Sleep Pattern, Anhedonia, Anxiety, Auditory Hallucinations, Behavioral Changes, Change in Appetite, Change in Libido, Confusion, Depression, Difficulty Concentrating, Hallucinations, Homicidal Ideation, Hopelessness, Irritability, Memory Loss, Mood Swings, Panic Attacks, Paranoia, Suicidal Ideation, Visual Hallucinations, Tactile Hallucinations, Other - Endocrine Endocrine: absent: As Per HPI, Change in Body Appearance, Change in Libido, Cold Intolorance, Deepening of Voice, Excessive Sweating, Fatigue, Flushing, Heat Intolorance, Increase in Ring/Shoe/Hat Size, Palpitations, Polydipsia, Polyphagia, Polyuria, Other - Hematologic/Lymphatic Hematologic: absent: As Per HPI, Easy Bleeding, Easy Bruising, Lymphadenopathy, Other Past Patient History - Past Medical History & Family History Past Medical History?: Yes - Past Social History Smoking Status: Never Smoked - CARDIAC Hx Atrial Fibrillation: Yes Hx Cardia Arrhythmia: Yes (a fib) Hx Hypercholesterolemia: Yes Hx Hypertension: Yes - PULMONARY Hx Respiratory Disorders: No - NEUROLOGICAL Hx Neurological Disorder: No Other/Comment: NEUROPATHY - HEENT Hx HEENT Problems: Yes Hx Cataracts: Yes (right eye) Hx Glaucoma: Yes - RENAL Hx Chronic Kidney Disease: No - ENDOCRINE/METABOLIC Hx Endocrine Disorders: No - HEMATOLOGICAL/ONCOLOGICAL Hx Blood Disorders: No - INTEGUMENTARY Hx Dermatological Problems: No - MUSCULOSKELETAL/RHEUMATOLOGICAL Hx Falls: No - GASTROINTESTINAL Hx Gall Bladder Disease: Yes - GENITOURINARY/GYNECOLOGICAL Hx Genitourinary Disorders: Yes Hx Prostate Problems: Yes (rodriguez to sgd) - PSYCHIATRIC Hx Substance Use: No - SURGICAL HISTORY Hx Appendectomy: Yes Hx Cholecystectomy: Yes Hx Coronary Stent: Yes (x2) Hx Tonsillectomy: Yes - ANESTHESIA Hx Anesthesia: Yes Hx Anesthesia Reactions: No Hx Malignant Hyperthermia: No Meds Allergies/Adverse Reactions: Allergies Allergy/AdvReac Type Severity Reaction Status Date / Time aspirin Allergy RASH Verified 01/05/17 03:42 Penicillins Allergy RASH Verified 01/05/17 03:42 - Medications Medications: Current Medications Acetaminophen (Tylenol 325mg Tab) 650 mg PO Q8H PRN PRN Reason: pain Last Admin: 01/08/17 11:18 Dose: 650 mg Alprazolam (Xanax) 0.25 mg PO DAILY [facility] Stop: 01/13/17 10:01 Last Admin: 01/08/17 11:24 Dose: 0.25 mg Ciprofloxacin (Cipro) 500 mg PO Q12 [facility] Last Admin: 01/08/17 11:18 Dose: 500 mg Latanoprost (Xalatan Opht) 0 ml OU HS [facility] Last Admin: 01/07/17 23:01 Dose: 2.5 ml Oxycodone/Acetaminophen (Percocet 5/325 Mg Tab) 1 tab PO Q6H PRN PRN Reason: Pain, severe (8-10) Stop: 01/11/17 12:15 Last Admin: 01/08/17 12:57 Dose: 1 tab Tamsulosin HCl (Flomax) 0.4 mg PO BID [facility] Last Admin: 01/08/17 11:18 Dose: 0.4 mg Physical Exam - Constitutional Appears: Non-toxic, Chronically Ill - Head Exam Head Exam: NORMOCEPHALIC - Eye Exam Eye Exam: PERRL. absent: Scleral icterus - ENT Exam ENT Exam: Mucous Membranes Dry, Normal External Ear Exam - Neck Exam Neck exam: Negative for: Lymphadenopathy, Thyromegaly - Respiratory Exam Respiratory Exam: Decreased Breath Sounds, Clear to Auscultation Bilateral - Cardiovascular Exam Cardiovascular Exam: REGULAR RHYTHM, +S1, +S2 - GI/Abdominal Exam GI & Abdominal Exam: Diminished Bowel Sounds, Soft. absent: Tenderness - Rectal Exam Rectal Exam: Deferred - Exam Exam: NORMAL INSPECTION - Extremities Exam Extremities exam: Positive for: pedal pulses present. Negative for: calf tenderness, pedal edema, tenderness - Back Exam Back exam: absent: CVA tenderness (L), CVA tenderness (R), paraspinal tenderness Results - Vital Signs Recent Vital Signs: Last Vital Signs Temp 97.4 F L 01/08/17 16:32 Pulse 101 H 01/08/17 16:32 Resp 20 01/08/17 16:32 BP 131/84 01/08/17 16:32 Pulse Ox 98 01/08/17 16:32 - Labs Result Diagrams: 01/06/17 14:01 01/06/17 14:01 Assessment & Plan (1) Abdominal pain Status: Acute (2) Hematuria Status: Acute (3) Urinary retention Status: Acute (4) UTI (urinary tract infection) Status: Acute - Assessment and Plan (Free Text) Assessment: await cultures may need terminal operations supervisor iv rx
[2017-01-08] MEDS: Linezolid 600 mg in D5W 300 ml 600 MG/300 ML BAG IVPB SCH (21:21)
[2017-01-08] MEDS: Latanoprost 2.5 ml Opht Soln OU SCH (21:21)
[2017-01-08] MEDS: Sodium Chloride 0.9% 1,000 ML IV SCH (22:56)
--- NOTE | 2017-01-09 08:35 | CON ---
DATE: 01/06/2017 This patient is a 76 year-old male who has a history of acute urinary retention. He underwent transurethral resection of the prostate gland at [facility] on 12/09/2016. The procedure went without any difficulties. No complication. The patient was discharged home with a Veliz leg bag. This patient was seen at the office 2 or 3 times. Last time, was seen on 12/05/2016. He voided good amount of urine. No gross hematuria other time. The Veliz catheter was removed. The patient was advised against strenuous activity. According to the patient, the patient went home driving. At that time later on he had started to bleed and had difficulty passing the urine. He developed acute urinary retention and went to [facility] on 12/06/2016. A Veliz catheter was placed, and they continued bladder irrigation with normal saline was instilled. The patient was admitted, up to today he is doing very well. The abdomen is soft. No temperature elevation. Still there is a bladder drain that is not completely clear, so we will wait till tomorrow for reevaluating him. Asad Capone MD
[2017-01-09] MEDS: Linezolid 600 mg in D5W 300 ml 600 MG/300 ML BAG IVPB SCH ×2 (11:00→21:55)
--- NOTE | 2017-01-09 15:33 | CP.PCM.PN ---
Subjective - Date & Time of Evaluation Date of Evaluation: 01/09/17 Time of Evaluation: 15:32 - Subjective Subjective: PT SEEN BY DR. Keith KLEIN DURING ROUNDS. DR KLEIN REQUESTING PT TO BE D/C HOME TODAY. PT STILL CBI RUNNING WITH CLOTS PER PRIMARY RN LUANA. DR. PRASAD TO SEE PT THIS EVENING PER RN. RADIO ASSEMBLER DISCUSSED ABX DURATION WITH DR. RUBIO--PER DR. RUBIO PT CAN BE D/C WITH ZYVOX 600 MG PO Q12 HOURS X7 DAYS. CBC AND BMP TO BE DONE IN THE MORNING. WILL F/U TOMORROW WITH PT AND LABS FOR POTENTIAL D/C TOMORROW. NO FURTHER ORDERS. Objective - Vital Signs/Intake and Output Vital Signs (last 24 hours): Temp Pulse Resp BP Pulse Ox 98.1 F 100 H 18 104/62 97 01/09/17 07:00 01/09/17 07:00 01/09/17 07:00 01/09/17 07:00 01/09/17 07:00 Intake and Output: 01/09/17 01/09/17 06:59 18:59 Intake Total 7745 09181 Output Total 8065 14664 Balance -320 -2300 - Medications Medications: Current Medications Acetaminophen (Tylenol 325mg Tab) 650 mg PO Q8H PRN PRN Reason: pain Last Admin: 01/09/17 12:26 Dose: 650 mg Alprazolam (Xanax) 0.25 mg PO DAILY [facility] Stop: 01/13/17 10:01 Last Admin: 01/09/17 10:30 Dose: Not Given Linezolid (Zyvox 600mg/300ml D5w) 600 mg in 300 mls @ 200 mls/hr IVPB Q12 [facility] Last Admin: 01/09/17 11:00 Dose: 200 mls/hr Sodium Chloride (Sodium Chloride 0.9%) 1,000 mls @ 50 mls/hr IV .Q20H [facility] Last Admin: 01/08/17 22:56 Dose: Not Given Latanoprost (Xalatan Opht) 0 ml OU HS [facility] Last Admin: 01/08/17 21:21 Dose: 2.5 ml Oxycodone/Acetaminophen (Percocet 5/325 Mg Tab) 1 tab PO Q4H PRN PRN Reason: Pain, severe (8-10) Stop: 01/11/17 12:15 Last Admin: 01/08/17 23:03 Dose: 1 tab Tamsulosin HCl (Flomax) 0.4 mg PO BID [facility] Last Admin: 01/09/17 11:00 Dose: 0.4 mg - Labs Labs: 01/06/17 14:01 01/06/17 14:01 PT 12.8 SECONDS (9.7-12.2) H 01/05/17 04:28 INR 1.1 01/05/17 04:28 APTT 35 SECONDS (21-34) H 01/05/17 04:28
--- NOTE | 2017-01-09 15:59 | CP.PCM.PN ---
Subjective - Date & Time of Evaluation Date of Evaluation: 01/09/17 Time of Evaluation: 12:00 - Subjective Subjective: clinically same Objective - Vital Signs/Intake and Output Vital Signs (last 24 hours): Temp Pulse Resp BP Pulse Ox 97.7 F 100 H 18 104/62 97 01/09/17 11:30 01/09/17 07:00 01/09/17 07:00 01/09/17 07:00 01/09/17 07:00 Intake and Output: 01/09/17 01/09/17 06:59 18:59 Intake Total 7745 94545 Output Total 8065 86337 Balance -320 -2300 - Medications Medications: Current Medications Acetaminophen (Tylenol 325mg Tab) 650 mg PO Q8H PRN PRN Reason: pain Last Admin: 01/09/17 12:26 Dose: 650 mg Alprazolam (Xanax) 0.25 mg PO DAILY [facility] Stop: 01/13/17 10:01 Last Admin: 01/09/17 10:30 Dose: Not Given Linezolid (Zyvox 600mg/300ml D5w) 600 mg in 300 mls @ 200 mls/hr IVPB Q12 [facility] Last Admin: 01/09/17 11:00 Dose: 200 mls/hr Sodium Chloride (Sodium Chloride 0.9%) 1,000 mls @ 50 mls/hr IV .Q20H [facility] Last Admin: 01/08/17 22:56 Dose: Not Given Latanoprost (Xalatan Opht) 0 ml OU HS [facility] Last Admin: 01/08/17 21:21 Dose: 2.5 ml Oxycodone/Acetaminophen (Percocet 5/325 Mg Tab) 1 tab PO Q4H PRN PRN Reason: Pain, severe (8-10) Stop: 01/11/17 12:15 Last Admin: 01/08/17 23:03 Dose: 1 tab Tamsulosin HCl (Flomax) 0.4 mg PO BID [facility] Last Admin: 01/09/17 11:00 Dose: 0.4 mg - Labs Labs: 01/06/17 14:01 01/06/17 14:01 PT 12.8 SECONDS (9.7-12.2) H 01/05/17 04:28 INR 1.1 01/05/17 04:28 APTT 35 SECONDS (21-34) H 01/05/17 04:28 - Constitutional Appears: Well - Head Exam Head Exam: ATRAUMATIC, NORMAL INSPECTION, NORMOCEPHALIC - Eye Exam Eye Exam: EOMI, Normal appearance, PERRL Pupil Exam: NORMAL ACCOMODATION, PERRL - ENT Exam ENT Exam: Mucous Membranes Moist, Normal Exam - Neck Exam Neck Exam: Full ROM, Normal Inspection. absent: Lymphadenopathy - Respiratory Exam Respiratory Exam: Decreased Breath Sounds - Cardiovascular Exam Cardiovascular Exam: REGULAR RHYTHM, +S1, +S2 - GI/Abdominal Exam GI & Abdominal Exam: Soft, Diminished Bowel Sounds - Rectal Exam Rectal Exam: Deferred
--- NOTE | 2017-01-09 16:31 | CP.PCM.PN ---
Subjective - Date & Time of Evaluation Date of Evaluation: 01/09/17 Time of Evaluation: 08:00 - Subjective Subjective: growing enterococcus in urine allergic PCN cont zyvox Objective - Vital Signs/Intake and Output Vital Signs (last 24 hours): Temp Pulse Resp BP Pulse Ox 98.1 F 98 H 20 119/74 99 01/09/17 15:18 01/09/17 15:18 01/09/17 15:18 01/09/17 15:18 01/09/17 15:18 Intake and Output: 01/09/17 01/09/17 06:59 18:59 Intake Total 7745 23079 Output Total 8065 96736 Balance -320 -2300 - Medications Medications: Current Medications Acetaminophen (Tylenol 325mg Tab) 650 mg PO Q8H PRN PRN Reason: pain Last Admin: 01/09/17 12:26 Dose: 650 mg Alprazolam (Xanax) 0.25 mg PO DAILY [facility] Stop: 01/13/17 10:01 Last Admin: 01/09/17 10:30 Dose: Not Given Linezolid (Zyvox 600mg/300ml D5w) 600 mg in 300 mls @ 200 mls/hr IVPB Q12 [facility] Last Admin: 01/09/17 11:00 Dose: 200 mls/hr Sodium Chloride (Sodium Chloride 0.9%) 1,000 mls @ 50 mls/hr IV .Q20H [facility] Last Admin: 01/08/17 22:56 Dose: Not Given Latanoprost (Xalatan Opht) 0 ml OU HS [facility] Last Admin: 01/08/17 21:21 Dose: 2.5 ml Oxycodone/Acetaminophen (Percocet 5/325 Mg Tab) 1 tab PO Q4H PRN PRN Reason: Pain, severe (8-10) Stop: 01/11/17 12:15 Last Admin: 01/08/17 23:03 Dose: 1 tab Tamsulosin HCl (Flomax) 0.4 mg PO BID [facility] Last Admin: 01/09/17 11:00 Dose: 0.4 mg - Labs Labs: 01/06/17 14:01 01/06/17 14:01 PT 12.8 SECONDS (9.7-12.2) H 01/05/17 04:28 INR 1.1 01/05/17 04:28 APTT 35 SECONDS (21-34) H 01/05/17 04:28 - Constitutional Appears: Non-toxic, Chronically Ill - Head Exam Head Exam: NORMOCEPHALIC - Eye Exam Eye Exam: PERRL - ENT Exam ENT Exam: Mucous Membranes Dry - Neck Exam Neck Exam: absent: Lymphadenopathy - Respiratory Exam Respiratory Exam: Decreased Breath Sounds - Cardiovascular Exam Cardiovascular Exam: REGULAR RHYTHM - GI/Abdominal Exam GI & Abdominal Exam: Distended, Soft Assessment and Plan (1) Abdominal pain Status: Acute (2) Hematuria Status: Acute (3) Urinary retention Status: Acute (4) UTI (urinary tract infection) Status: Acute
[2017-01-09] MEDS: Oxycodone/Acetaminophen 5/325 mg Tab PO PRN ×2 (18:36→22:30)
[2017-01-09] MEDS: Sodium Chloride 0.9% 1,000 ML IV SCH (19:45)
[2017-01-09] MEDS: Latanoprost 2.5 ml Opht Soln OU SCH (21:55)
[2017-01-10 08:01] VITALS: TEMP 97.9
--- NOTE | 2017-01-10 08:24 | CP.PCM.PN ---
Subjective - Date & Time of Evaluation Date of Evaluation: 01/10/17 Time of Evaluation: 08:24 - Subjective Subjective: PGY-[address] Jackson's service: Pt seen and examined at bedside. Nursing reports for the first time over course today pt has no hematuria. He still is on CBI, and patient reports greatly improved pain since admission. Nursing reports three way rodriguez flushed with no blood clots. Pt denies fever, chills, chest pain, SOB, or palpitations. Objective - Vital Signs/Intake and Output Vital Signs (last 24 hours): Temp Pulse Resp BP Pulse Ox 97.9 F 91 H 20 114/51 L 97 01/10/17 07:59 01/10/17 07:59 01/10/17 07:59 01/10/17 07:59 01/10/17 07:59 Intake and Output: 01/10/17 01/10/17 06:59 18:59 Intake Total 89194 Output Total 25578 Balance -1815 - Medications Medications: Current Medications Acetaminophen (Tylenol 325mg Tab) 650 mg PO Q8H PRN PRN Reason: pain Last Admin: 01/09/17 12:26 Dose: 650 mg Alprazolam (Xanax) 0.25 mg PO DAILY [facility] Stop: 01/13/17 10:01 Last Admin: 01/09/17 10:30 Dose: Not Given Linezolid (Zyvox 600mg/300ml D5w) 600 mg in 300 mls @ 200 mls/hr IVPB Q12 [facility] Last Admin: 01/09/17 21:55 Dose: 200 mls/hr Sodium Chloride (Sodium Chloride 0.9%) 1,000 mls @ 50 mls/hr IV .Q20H [facility] Last Admin: 01/09/17 19:45 Dose: Not Given Latanoprost (Xalatan Opht) 0 ml OU HS [facility] Last Admin: 01/09/17 21:55 Dose: 2.5 ml Oxybutynin Chloride (Ditropan Tab) 5 mg PO DAILY [facility] Last Admin: 01/09/17 22:57 Dose: 5 mg Oxycodone/Acetaminophen (Percocet 5/325 Mg Tab) 1 tab PO Q4H PRN PRN Reason: Pain, severe (8-10) Stop: 01/11/17 12:15 Last Admin: 01/09/17 22:30 Dose: 1 tab Tamsulosin HCl (Flomax) 0.4 mg PO BID [facility] Last Admin: 01/09/17 18:35 Dose: 0.4 mg - Labs Labs: 01/06/17 14:01 01/06/17 14:01 PT 12.8 SECONDS (9.7-12.2) H 01/05/17 04:28 INR 1.1 01/05/17 04:28 APTT 35 SECONDS (21-34) H 01/05/17 04:28 - Constitutional Appears: Non-toxic, No Acute Distress - Head Exam Head Exam: NORMAL INSPECTION, NORMOCEPHALIC - Eye Exam Eye Exam: EOMI, PERRL. absent: Scleral icterus - ENT Exam ENT Exam: Mucous Membranes Dry - Respiratory Exam Respiratory Exam: Clear to Ausculation Bilateral, NORMAL BREATHING PATTERN. absent: Accessory Muscle Use, Rales, Rhonchi, Wheezes - Cardiovascular Exam Cardiovascular Exam: REGULAR RHYTHM, +S1, +S2 - GI/Abdominal Exam GI & Abdominal Exam: Soft, Normal Bowel Sounds. absent: Tenderness - Exam Additional comments: CBI still running three way catheter in place - no place in rodriguez bag, urine is yellow - Extremities Exam Extremities Exam: Normal Inspection. absent: Pedal Edema, Tenderness - Neurological Exam Neurological Exam: Alert, Awake, Oriented x3 - Psychiatric Exam Psychiatric exam: Normal Affect, Normal Mood - Skin Skin Exam: Normal Color, Warm Assessment and Plan - Assessment and Plan (Free Text) Plan: Urinary retention Three way rodriguez catheter inserted - continue CBI Dr. Capone, urology technology methodology consultant - Oxybutynin 5mg PO daily - Tamsulosin 0.4mg PO BID Urine culture (01/06/17): E. faecalis Dr. Layton, ID technology methodology consultant - Pt can be discharged on Zyvox 600mg PO Q12H x 7days Percocet 1 tab PO Q4H PRN for severe pain Hematuria Resolved Hgb stable at 9.6 Afib Start Bisoprolol fumarate 5mg PO Daily Eliquis 5mg PO BID - ok to restart Eliquis at discharge per Dr. Jackson Prophylaxis OK to restart eliquis at discharge per Dr. Jackson SCDs Disposition: Spoke to Dr. Capone. Pt discharged with rodriguez leg bag. He is to follow up with [facility] next Monday. Per ID, pt to be discharged on Zyvox. Given prescriptions for oxybutynin, tamsulosin, and zyvox. Gaetano Vora PGY-2 All medical management per Dr. Keith Jackson
[2017-01-10 08:35] LABS: HEMATOCRIT 28.9 % (35.0-51.0); MEAN CELL VOLUME 80.5 fL (80.0-94.0); MEAN CORPUSCULAR HGB CONC 33.6 g/dL (33.0-37.0); MEAN PLATELET VOLUME 9.2 fL (7.2-11.7); RED CELL DISTRIBUTION WIDTH 15.5 % (11.5-14.5); WHITE BLOOD COUNT 5.4 K/uL (4.8-10.8)
[2017-01-10 08:51] LABS: CHLORIDE 102 mmol/L (98-107); POTASSIUM 3.8 mmol/L (3.6-5.2); SODIUM 138 mmol/L (132-148)
[2017-01-10 08:54] LABS: BLOOD UREA NITROGEN 9 mg/dL (9-20); CALCIUM 8.9 mg/dl (8.6-10.4); CARBON DIOXIDE 24 mmol/L (22-30); GFR AFRICAN-AMERICAN > 60; GLUCOSE,RANDOM 82 mg/dL (75-110)
[2017-01-10] MEDS: Linezolid 600 mg in D5W 300 ml 600 MG/300 ML BAG IVPB SCH (09:53)
[2017-01-10 16:21] VITALS: BP 115/68; PULSE 92; RESP 20; O2SAT 98
== END 2017-01-10 17:52 | disposition home or self-care (01) | DRG 690 ==
LOC: C.ER 03:21 → C.6T 05:28
PROVIDERS: ADMIT Internal Medicine Nephrology; ATTEND Internal Medicine Nephrology
DX: N39.0 Urinary tract infection, site not specified (principal); I48.91 Unspecified atrial fibrillation; R31.9 Hematuria, unspecified; R33.8 Other retention of urine; I10 Essential (primary) hypertension; I25.10 Atherosclerotic heart disease of native coronary artery without angina pectoris; F32.9 Major depressive disorder, single episode, unspecified; E78.00 Pure hypercholesterolemia, unspecified; F41.9 Anxiety disorder, unspecified; Z95.5 Presence of coronary angioplasty implant and graft; Z87.891 Personal history of nicotine dependence; B95.2 Enterococcus as the cause of diseases classified elsewhere; Z88.0 Allergy status to penicillin